=== PATIENT | female | born 1965 | race Caucasian/White ===

== ENCOUNTER 2021-01-17 20:19 | Inpatient (IN) | payer MEDICARE, SELFPAY ==
[~2021-01-17 20:19] MED LIST: Iopamidol-370 76% 500 ML 1 ML ONE
[2021-01-17 20:55] LABS: ALT (SGPT) 13 U/L (8-55); AST (SGOT) 19 U/L (5-34); Albumin 3.8 g/dL (3.5-5.0); Alkaline Phosphatase 87 U/L (40-110); Anion Gap 19 mmol/L (10-20); BUN (Urea Nitrogen) 41 mg/dL (9.8-20.1); Bilirubin, Total 0.7 mg/dL (0.2-1.2); Calc. Creatinine Clearance 0 mL/min (70-130); Calcium 7.9 mg/dL (7.8-10.44); Carbon Dioxide 18 mmol/L (22-29); Chloride 106 mmol/L (98-107); Globulin 2.5 g/dL (2.4-3.5); Glucose 176 mg/dL (70-105); Potassium 6.3 mmol/L (3.5-5.1); Protein, Total 6.3 g/dL (6.0-8.3); Sodium 137 mmol/L (136-145)
[2021-01-17 21:08] LABS: INR-International Normal Ratio 1.1; PTT 23.2 sec (22.9-36.1); Prothrombin Time 14.6 sec (12.0-14.7)
[2021-01-17 21:10] LABS: Hemoglobin 10.2 g/dL (12.0-16.0); Mean Corpuscular HGB CONC 32.3 g/dL (32.0-36.0); Mean Corpuscular Hemoglobin 31.5 pg (27.0-31.0); Mean Corpuscular Volume 97.6 fL (78.0-98.0); RBC Distribution Width 12.9 % (11.5-14.5); Red Blood Cell (RBC) Count 3.25 mill/uL (4.20-5.40)
[2021-01-17 21:14] LABS: Band 39 % (5-11); Lymphocytes 10 % (21-51); MDiff Complete? YES; Mean Platelet Volume 6.3 fL (7.4-10.4); Monocytes 3 % (0-10); Neutrophil 48 % (42-75); Platelet Count 353 thou/uL (130-400); White Blood Cell (WBC) Count 16.7 thou/uL (4.8-10.8)
[2021-01-17] MEDS ORDERED: Sodium Bicarb 50 MEQ/50 ML Abboject 8.4% SYRINGE ONE (21:25)
[2021-01-17] MEDS ORDERED: Pantoprazole 40 MG VIAL ONE (21:49)
[2021-01-17] MEDS ORDERED: Azithromycin 500 MG VIAL ONE (21:49)
[2021-01-17] MEDS ORDERED: cefTRIAXone\\ROCEPHIN 1 GM VIAL ONE (21:49)
[2021-01-17] MEDS ORDERED: Pantoprazole 80 MG, Admixture Fee 1 EACH in Sodium Chloride 0.9% 100 ML IVPB SCH (22:00)
[2021-01-17 22:04] LABS: Bacteria/HPF None Seen HPF (None Seen); Bilirubin Negative (Negative); Blood, Urine Negative (Negative); Clarity Clear (Clear); Glucose, Urine (Dipstick) Normal (Negative); Ketone, Urine Negative (Negative); Leukocyte Negative Leu/uL (Negative); Nitrite Negative (Negative); Protein, Urine (Dipstick) 50 mg/dL (Neg-Trace); Squamous Epithelial 0-3 HPF (0-3); Urobilinogen Normal mg/dL (Less than 2); pH, Urine 5.5 (5.0-9.0)
[2021-01-17 22:08] LABS: Acetaminophen Less than 6.0 mcg/mL (10.0-30.0); Alcohol Less than 10 mg/dL (Less than 10); Salicylate Less than 8.0 mg/dL (15.0-30.0)
[2021-01-17 22:12] LABS: SARS-CoV-2 NAA Rapid Test Not Detected (NotDetected)
[2021-01-17] MEDS ORDERED: Acetaminophen 650 MG Suppository PR PRN (23:04)
[2021-01-17] MEDS ORDERED: Pantoprazole 80 MG in Sodium Chloride 0.9% 100 ML IVPB SCH (23:06)
[2021-01-17] MEDS ORDERED: Norepinephrine 8 MG/0.9% NS 250 ML ONE (23:09)
[2021-01-17] MEDS ORDERED: Calcium Gluc 4.6 MEQ/10 ML (100 MG/ML) ONE (23:11)
[2021-01-17] MEDS ORDERED: Rocuronium Bromide 10 MG/ML (10ML VIAL) ONE (23:11)
[2021-01-17] MEDS ORDERED: Fentanyl CADD 100 ML IV SCH (23:45)
[2021-01-17] MEDS ORDERED: Sodium Chloride 0.9% 1,000 ML IV SCH (23:45)
[2021-01-18 00:14] LABS: Hemoglobin 11.8 g/dL (12.0-16.0); Mean Corpuscular Hemoglobin 31.4 pg (27.0-31.0); Mean Corpuscular Volume 97.2 fL (78.0-98.0)
[2021-01-18 00:16] LABS: ALT (SGPT) 21 U/L (8-55); AST (SGOT) 50 U/L (5-34); Albumin 3.2 g/dL (3.5-5.0); Alkaline Phosphatase 125 U/L (40-110); Anion Gap 15 mmol/L (10-20); BUN (Urea Nitrogen) 34 mg/dL (9.8-20.1); Bilirubin, Total 0.7 mg/dL (0.2-1.2); Calc. Creatinine Clearance 0 mL/min (70-130); Carbon Dioxide 16 mmol/L (22-29); Chloride 110 mmol/L (98-107); Globulin 2.4 g/dL (2.4-3.5); Glucose 170 mg/dL (70-105); Protein, Total 5.6 g/dL (6.0-8.3); Sodium 135 mmol/L (136-145)
[2021-01-18 00:22] LABS: Actual Bicarbonate (HCO3a) 13.6 mEq/L (22-28); Base Excess (BEa) -12.4 mEq/L (-2.0 to +3.0); CO2 Tension 31.6 mmHg (35.0-45.0); Calcium, Ionized (arterial) 1.05 mmol/L (1.12-1.30); Carboxyhemoglobin (COHb) 0.2 gm% (0.0-3.0); Hemoglobin (Hb) 12.6 g/dL (12.0-16.0); O2 Tension (PaO2), arterial 396.4 mmHg (80.0-100.0); Potassium - ABG Lab 5.74 mmol/L (3.70-5.30); pH, Arterial 7.25 (7.35-7.45)
[2021-01-18 00:23] LABS: Analyzer IN Cardio ER; Puncture Site LBA
[2021-01-18 00:47] LABS: Mean Corpuscular HGB CONC 32.3 g/dL (32.0-36.0); Mean Platelet Volume 6.4 fL (7.4-10.4); Platelet Count 249 thou/uL (130-400); RBC Distribution Width 14.2 % (11.5-14.5); Red Blood Cell (RBC) Count 3.77 mill/uL (4.20-5.40); White Blood Cell (WBC) Count 8.8 thou/uL (4.8-10.8)
[2021-01-18 00:51] LABS: Band 34 % (5-11); Lymphocytes 13 % (21-51); Monocytes 1 % (0-10); Neutrophil 52 % (42-75)
[2021-01-18 01:05] LABS: MDiff Complete? YES
[2021-01-18] MEDS ORDERED: Fentanyl BOLUS 250 ML IVPB PRN (01:15)
[2021-01-18] MEDS ORDERED: Propofol BOLUS 1,000 MG/100 ML VIAL IV PRN (01:15)
[2021-01-18] MEDS ORDERED: Morphine 2 MG/ML VIAL SLOW IVP PRN (01:15)
[2021-01-18] MEDS ORDERED: Vancomycin 1 GM in Premix Bag 1 BAG IVPB SCH (01:15)
[2021-01-18] MEDS ORDERED: Fentanyl CADD 100 ML IV SCH (01:15)
[2021-01-18] MEDS ORDERED: Propofol 1,000 MG/100 ML VIAL IV PRN (01:15)
[2021-01-18 01:20] LABS: Amphetamine Detected (NotDetected); Barbiturates Screen Not Detected (NotDetected); Benzodiazepine Screen Detected (NotDetected); Cocaine Metabolite Screen Not Detected (NotDetected); Medtox Control Line Valid? VALID (VALID); Medtox Reader # READER 4; Methadone Not Detected (NotDetected); Methamphetamine Not Detected (NotDetected); Opiate Screen Detected (NotDetected); Oxycodone Screen Not Detected (NotDetected); Phencyclidine (PCP) Not Detected (NotDetected); THC/Cannabinoid Screen Detected (NotDetected); Tricyclic Screen Not Detected (NotDetected)
[2021-01-18] MEDS ORDERED: Dextrose 50% Abboject 50 ML SYRINGE SLOW IVP PRN (01:38)
[2021-01-18] MEDS ORDERED: Insulin Regular 300 UNITS/3 ML VIAL IVP SCH (01:45)
[2021-01-18] MEDS ORDERED: Sodium Bicarbonate 150 MEQ in Dextrose 5% in Water 1,000 ML IV SCH (01:45)
[2021-01-18] MEDS: MEROPENEM 1 GM/50 ML 1 GM in Premix Bag 1 BAG IVPB SCH ×3 (01:49→16:54)
[2021-01-18] MEDS: Thiamine HCl 200 MG/2 ML VIAL SLOW IVP SCH (01:51)
[2021-01-18] MEDS: Lorazepam 2 MG/ML VIAL SLOW IVP PRN ×2 (01:52→20:06)
[2021-01-18] MEDS ORDERED: Vancomycin HCl 500 MG in Sodium Chloride 0.9% 100 ML IVPB SCH (02:00)
[2021-01-18 04:44] LABS: Hemoglobin A1c 5.2 % (4.0-6.0)
[2021-01-18 04:51] LABS: Hemoglobin 11.5 g/dL (12.0-16.0); Mean Corpuscular HGB CONC 31.7 g/dL (32.0-36.0); Mean Corpuscular Hemoglobin 30.6 pg (27.0-31.0); Mean Corpuscular Volume 96.4 fL (78.0-98.0); Mean Platelet Volume 6.5 fL (7.4-10.4); Platelet Count 267 thou/uL (130-400); RBC Distribution Width 14.4 % (11.5-14.5); Red Blood Cell (RBC) Count 3.77 mill/uL (4.20-5.40); White Blood Cell (WBC) Count 4.3 thou/uL (4.8-10.8)
[2021-01-18 04:59] LABS: ALT (SGPT) 33 U/L (8-55); AST (SGOT) 77 U/L (5-34); Alkaline Phosphatase 142 U/L (40-110); Anion Gap 11 mmol/L (10-20); BUN (Urea Nitrogen) 31 mg/dL (9.8-20.1); Bilirubin, Total 0.5 mg/dL (0.2-1.2); Calc. Creatinine Clearance 29 mL/min (70-130); Calcium 7.1 mg/dL (7.8-10.44); Carbon Dioxide 17 mmol/L (22-29); Chloride 115 mmol/L (98-107); Globulin 2.3 g/dL (2.4-3.5); Glucose 131 mg/dL (70-105); Potassium 4.4 mmol/L (3.5-5.1); Protein, Total 5.3 g/dL (6.0-8.3); Sodium 139 mmol/L (136-145)
[2021-01-18 05:15] LABS: Actual Bicarbonate (HCO3a) 18.9 mEq/L (22-28); Base Excess (BEa) -7.8 mEq/L (-2.0 to +3.0); CO2 Tension 42.8 mmHg (35.0-45.0); Calcium, Ionized (arterial) 1.09 mmol/L (1.12-1.30); Carboxyhemoglobin (COHb) 0.6 gm% (0.0-3.0); Hemoglobin (Hb) 12.6 g/dL (12.0-16.0); O2 Tension (PaO2), arterial 91.3 mmHg (80.0-100.0); Potassium - ABG Lab 4.52 mmol/L (3.70-5.30); pH, Arterial 7.26 (7.35-7.45)
[2021-01-18 05:16] LABS: Puncture Site LBA
[2021-01-18] MEDS: Sodium Bicarbonate 150 MEQ in Dextrose 5% in Water 1,000 ML IV SCH ×2 (06:13→15:57)
[2021-01-18 06:26] LABS: Band 36 % (5-11); Eosinophils 3 % (0-10); Lymphocytes 29 % (21-51); MDiff Complete? YES; Metamyelocyte 5 % (0-0); Monocytes 2 % (0-10); Neutrophil 25 % (42-75)
[2021-01-18 06:56] LABS: Hemoglobin 11.8 g/dL (12.0-16.0)
[2021-01-18] MEDS ORDERED: Prevnar 13-Val Conj/PF 0.5 ML SYRINGE IM ONE (09:00)
[2021-01-18] MEDS ORDERED: Albumin 25% 25 GM/100 ML BOT IVPB SCH (09:15)
[2021-01-18] MEDS: Vancomycin HCl 25 MG/ML Oral PER TUBE SCH ×3 (10:04→22:25)
[2021-01-18 11:16] LABS: Creatinine, Urine 112.61 mg/dL (47-110)
[2021-01-18 11:24] LABS: Hemoglobin 9.8 g/dL (12.0-16.0)
[2021-01-18 18:03] LABS: Hemoglobin 10.2 g/dL (12.0-16.0)
[2021-01-18] MEDS: Enalaprilat Dihydrate 1.25 MG/ML VIAL SLOW IVP SCH (19:00)
[2021-01-18] MEDS ORDERED: Acetaminophen 650 MG/20.3 ML UDCUP PER TUBE PRN (20:03)
[2021-01-18] MEDS ORDERED: Fentanyl CADD 100 ML ONE (23:04)
[2021-01-19] LABS: Hemoglobin 9.3 g/dL (12.0-16.0)
[2021-01-19] MEDS: MEROPENEM 1 GM/50 ML 1 GM in Premix Bag 1 BAG IVPB SCH ×3 (01:44→17:21)
[2021-01-19] MEDS ORDERED: Vancomycin HCl 500 MG in Sodium Chloride 0.9% 100 ML IVPB SCH (02:00)
[2021-01-19] MEDS: Thiamine HCl 200 MG/2 ML VIAL SLOW IVP SCH (02:48)
[2021-01-19] MEDS: Sodium Bicarbonate 150 MEQ in Dextrose 5% in Water 1,000 ML IV SCH (03:50)
[2021-01-19 04:35] LABS: Band 39 % (5-11); Eosinophils 9 % (0-10); Hemoglobin 9.6 g/dL (12.0-16.0); Lymphocytes 5 % (21-51); MDiff Complete? YES; Mean Corpuscular HGB CONC 33.7 g/dL (32.0-36.0); Mean Corpuscular Hemoglobin 31.8 pg (27.0-31.0); Mean Corpuscular Volume 94.3 fL (78.0-98.0); Mean Platelet Volume 6.5 fL (7.4-10.4); Monocytes 6 % (0-10); Neutrophil 38 % (42-75); Platelet Count 198 thou/uL (130-400); RBC Distribution Width 14.3 % (11.5-14.5); Reactive Lymphocytes 3 % (0-10); Red Blood Cell (RBC) Count 3.03 mill/uL (4.20-5.40); Vacuoles SLIGHT; White Blood Cell (WBC) Count 6.5 thou/uL (4.8-10.8)
[2021-01-19 04:36] LABS: ALT (SGPT) 18 U/L (8-55); AST (SGOT) 24 U/L (5-34); Albumin 2.9 g/dL (3.5-5.0); Alkaline Phosphatase 94 U/L (40-110); Anion Gap 9 mmol/L (10-20); BUN (Urea Nitrogen) 18 mg/dL (9.8-20.1); Bilirubin, Total 0.5 mg/dL (0.2-1.2); Calc. Creatinine Clearance 71 mL/min (70-130); Calcium 7.5 mg/dL (7.8-10.44); Carbon Dioxide 28 mmol/L (22-29); Chloride 106 mmol/L (98-107); Glucose 111 mg/dL (70-105); Potassium 3.6 mmol/L (3.5-5.1); Protein, Total 4.9 g/dL (6.0-8.3); Sodium 139 mmol/L (136-145)
[2021-01-19] MEDS ORDERED: Albumin 25% 0 ML ONE (08:42)
[2021-01-19] MEDS ORDERED: Pantoprazole 40 MG GRANULES PACKET PER TUBE SCH (09:00)
[2021-01-19] MEDS: methylPREDNISolone Sod Succ/PF 125 MG/2 ML VIAL IVP SCH ×3 (09:29→21:24)
[2021-01-19] MEDS: Vancomycin HCl 25 MG/ML Oral PO SCH ×3 (09:35→21:26)
[2021-01-19] MEDS ORDERED: Ergocalciferol 1.25 MG(50,000 UNITS) CAP PO SCH (10:30)
[2021-01-20] MEDS: MEROPENEM 1 GM/50 ML 1 GM in Premix Bag 1 BAG IVPB SCH ×3 (00:35→16:12)
[2021-01-20 01:26] LABS: Vancomycin, Trough 3.9 ug/mL
[2021-01-20] MEDS: Thiamine HCl 200 MG/2 ML VIAL SLOW IVP SCH (01:57)
[2021-01-20] MEDS ORDERED: Vancomycin 1 GM in Premix Bag 1 BAG IVPB SCH (02:00)
[2021-01-20] MEDS: Vancomycin HCl 25 MG/ML Oral PO SCH ×4 (02:53→21:04)
[2021-01-20] MEDS: methylPREDNISolone Sod Succ/PF 125 MG/2 ML VIAL IVP SCH ×4 (03:24→21:03)
[2021-01-20 04:19] LABS: #Lymphocytes 0.6 thou/uL (1.20-3.40); #Monocytes 0.2 thou/uL (0.11-0.59); #Neutrophils 4.8 thou/uL (1.40-6.50); %Lymphocytes 10.1 % (21.0-51.0); Hemoglobin 10.3 g/dL (12.0-16.0); Mean Corpuscular HGB CONC 33.8 g/dL (32.0-36.0); Mean Corpuscular Hemoglobin 31.7 pg (27.0-31.0); Mean Corpuscular Volume 93.7 fL (78.0-98.0); Mean Platelet Volume 6.6 fL (7.4-10.4); Platelet Count 225 thou/uL (130-400); RBC Distribution Width 13.9 % (11.5-14.5); Red Blood Cell (RBC) Count 3.25 mill/uL (4.20-5.40); White Blood Cell (WBC) Count 5.5 thou/uL (4.8-10.8)
[2021-01-20 04:42] LABS: ALT (SGPT) 17 U/L (8-55); AST (SGOT) 20 U/L (5-34); Albumin 3.2 g/dL (3.5-5.0); Alkaline Phosphatase 97 U/L (40-110); Anion Gap 11 mmol/L (10-20); BUN (Urea Nitrogen) 16 mg/dL (9.8-20.1); Bilirubin, Total 0.5 mg/dL (0.2-1.2); Calc. Creatinine Clearance 88 mL/min (70-130); Calcium 8.4 mg/dL (7.8-10.44); Carbon Dioxide 25 mmol/L (22-29); Chloride 107 mmol/L (98-107); Globulin 2.3 g/dL (2.4-3.5); Glucose 160 mg/dL (70-105); Potassium 3.2 mmol/L (3.5-5.1); Protein, Total 5.5 g/dL (6.0-8.3); Sodium 140 mmol/L (136-145)
[2021-01-20] MEDS: Ondansetron PF 4 MG/2 ML Vial IVP PRN (05:44)
[2021-01-20] MEDS ORDERED: Potassium Chloride 20 MEQ TAB PO SCH ×2 (05:45→18:15)
[2021-01-20 06:55] LABS: Phosphorus 1.5 mg/dL (2.3-4.7)
[2021-01-20] MEDS ORDERED: Potassium Phosphate 30 MMOL in Sodium Chloride 0.9% 250 ML 250 ML IVPB SCH (08:15)
[2021-01-20] MEDS: K-Phos Neutral 250 MG TAB PO SCH ×2 (08:38→16:13)
[2021-01-20] MEDS: Lorazepam 1 MG TAB PO PRN ×2 (11:10→17:20)
[2021-01-20] MEDS ORDERED: Enalaprilat Dihydrate 1.25 MG/ML VIAL SLOW IVP SCH (13:45)
[2021-01-20] MEDS: Gabapentin 300 MG CAP PO SCH ×2 (14:40→21:03)
[2021-01-20] MEDS: levETIRAcetam 500 MG TAB PO SCH ×2 (14:40→21:04)
[2021-01-20] MEDS: Enalaprilat Dihydrate 1.25 MG/ML VIAL SLOW IVP SCH (17:19)
[2021-01-20] MEDS ORDERED: hydrALAZINE 20 MG/ML VIAL SLOW IVP PRN (18:07)
[2021-01-20] MEDS ORDERED: cloNIDine 0.1 MG TAB PO SCH ×2 (18:15→21:00)
[2021-01-20] MEDS: Morphine ER 15 MG TAB PO SCH (21:02)
[2021-01-20] MEDS: Cyclobenzaprine 10 MG TAB PO SCH (21:03)
[2021-01-21] MEDS: Enalaprilat Dihydrate 1.25 MG/ML VIAL SLOW IVP SCH ×4 (00:30→17:21)
[2021-01-21] MEDS: MEROPENEM 1 GM/50 ML 1 GM in Premix Bag 1 BAG IVPB SCH ×2 (00:30→09:35)
[2021-01-21] MEDS: Thiamine HCl 200 MG/2 ML VIAL SLOW IVP SCH (01:53)
[2021-01-21] MEDS ORDERED: Vancomycin HCl 750 MG in Sodium Chloride 0.9% 250 ML 250 ML IVPB SCH (02:00)
[2021-01-21] MEDS: methylPREDNISolone Sod Succ/PF 125 MG/2 ML VIAL IVP SCH (03:13)
[2021-01-21] MEDS: Vancomycin HCl 25 MG/ML Oral PO SCH ×4 (03:13→20:37)
[2021-01-21 03:26] LABS: #Lymphocytes 0.9 thou/uL (1.20-3.40); #Monocytes 0.4 thou/uL (0.11-0.59); %Basophils 0.2 % (0.0-1.0); %Lymphocytes 10.4 % (21.0-51.0); %Monocytes 5.3 % (0.0-10.0); %Neutrophils 84.1 % (42.0-75.0); Hemoglobin 11.2 g/dL (12.0-16.0); Mean Corpuscular Hemoglobin 31.7 pg (27.0-31.0); Mean Corpuscular Volume 93.3 fL (78.0-98.0); Mean Platelet Volume 6.6 fL (7.4-10.4); Platelet Count 235 thou/uL (130-400); RBC Distribution Width 13.9 % (11.5-14.5); Red Blood Cell (RBC) Count 3.53 mill/uL (4.20-5.40); White Blood Cell (WBC) Count 8.3 thou/uL (4.8-10.8)
[2021-01-21 03:46] LABS: Anion Gap 13 mmol/L (10-20); BUN (Urea Nitrogen) 19 mg/dL (9.8-20.1); Calc. Creatinine Clearance 81 mL/min (70-130); Calcium 8.3 mg/dL (7.8-10.44); Carbon Dioxide 21 mmol/L (22-29); Chloride 111 mmol/L (98-107); Glucose 139 mg/dL (70-105); Potassium 3.7 mmol/L (3.5-5.1); Sodium 141 mmol/L (136-145)
[2021-01-21 04:22] LABS: Phosphorus 2.1 mg/dL (2.3-4.7)
[2021-01-21] MEDS: cloNIDine 0.1 MG TAB PO SCH ×3 (08:30→20:31)
[2021-01-21] MEDS: K-Phos Neutral 250 MG TAB PO SCH ×2 (08:31→16:17)
[2021-01-21] MEDS: Gabapentin 300 MG CAP PO SCH ×3 (08:31→20:33)
[2021-01-21] MEDS: levETIRAcetam 500 MG TAB PO SCH ×3 (08:31→20:34)
[2021-01-21] MEDS: Morphine ER 15 MG TAB PO SCH ×2 (08:32→20:37)
[2021-01-21] MEDS: Lisinopril 20 MG TAB PO SCH (08:32)
[2021-01-21] MEDS ORDERED: Amlodipine 5 MG TAB PO SCH (11:45)
[2021-01-21] MEDS: Ondansetron PF 4 MG/2 ML Vial IVP PRN ×2 (13:16→20:35)
[2021-01-21 14:46] VITALS: BMI 24.3
[2021-01-21] MEDS: HYDROcodone/Acetaminophen 5/325 mg Tablet PO PRN (16:16)
[2021-01-21] MEDS: Cyclobenzaprine 10 MG TAB PO SCH (20:32)
[2021-01-22] MEDS: Lorazepam 1 MG TAB PO PRN (00:06)
[2021-01-22] MEDS: HYDROcodone/Acetaminophen 5/325 mg Tablet PO PRN (00:08)
[2021-01-22] MEDS: Enalaprilat Dihydrate 1.25 MG/ML VIAL SLOW IVP SCH ×3 (01:19→12:50)
[2021-01-22] MEDS: Vancomycin HCl 25 MG/ML Oral PO SCH ×3 (02:45→15:25)
[2021-01-22] MEDS: Thiamine HCl 200 MG/2 ML VIAL SLOW IVP SCH (02:45)
[2021-01-22 06:46] LABS: Hemoglobin 10.8 g/dL (12.0-16.0); Mean Corpuscular HGB CONC 33.2 g/dL (32.0-36.0); Mean Corpuscular Hemoglobin 30.9 pg (27.0-31.0); Mean Platelet Volume 6.7 fL (7.4-10.4); Platelet Count 270 thou/uL (130-400); RBC Distribution Width 13.8 % (11.5-14.5); White Blood Cell (WBC) Count 8.2 thou/uL (4.8-10.8)
[2021-01-22 06:49] LABS: Anion Gap 12 mmol/L (10-20); BUN (Urea Nitrogen) 23 mg/dL (9.8-20.1); Calc. Creatinine Clearance 77 mL/min (70-130); Calcium 8.3 mg/dL (7.8-10.44); Carbon Dioxide 24 mmol/L (22-29); Chloride 104 mmol/L (98-107); Glucose 96 mg/dL (70-105); Phosphorus 2.8 mg/dL (2.3-4.7); Potassium 4.1 mmol/L (3.5-5.1); Sodium 136 mmol/L (136-145)
[2021-01-22 07:31] LABS: Band 4 % (5-11); Lymphocytes 13 % (21-51); MDiff Complete? YES; Monocytes 13 % (0-10); Neutrophil 70 % (42-75); Platelet Morphology Comment Appears Adequate; Polychromasia SLIGHT = 2-3 cells (100X) (0-2/hpf)
[2021-01-22] MEDS ORDERED: Amlodipine 5 MG TAB PO SCH (09:00)
[2021-01-22] MEDS: Gabapentin 300 MG CAP PO SCH ×2 (09:10→15:24)
[2021-01-22] MEDS: Morphine ER 15 MG TAB PO SCH (09:11)
[2021-01-22] MEDS: levETIRAcetam 500 MG TAB PO SCH ×2 (09:11→15:24)
[2021-01-22] MEDS: cloNIDine 0.1 MG TAB PO SCH ×2 (10:36→15:24)
[2021-01-22] MEDS: Lisinopril 20 MG TAB PO SCH (10:47)
[2021-01-22] MEDS: Ondansetron PF 4 MG/2 ML Vial IVP PRN (15:25)
[2021-01-22 19:49] VITALS: BP 143/82; TEMP 98.4
[2021-01-26] MEDS ORDERED: Ergocalciferol 1.25 MG(50,000 UNITS) CAP PO SCH (09:00)
== END 2021-01-22 18:55 | disposition home or self-care (01) | DRG 871 ==
LOC: EDBD 20:19 → ERS 20:19 → CCU 22:56 → T4-A 01-21 23:53
PROVIDERS: ADMIT Internal Medicine; ATTEND Internal Medicine
PROC: 5A1945Z Respiratory Ventilation, 24-96 Consecutive Hours (ICD-10-PCS; principal; 2021-01-17)
PROC: 0BH17EZ Insertion of Endotracheal Airway into Trachea, Via Natural or Artificial Opening (ICD-10-PCS; 2021-01-17)
PROC: 3E043XZ Introduction of Vasopressor into Central Vein, Percutaneous Approach (ICD-10-PCS; 2021-01-17)
PROC: 02HV33Z Insertion of Infusion Device into Superior Vena Cava, Percutaneous Approach (ICD-10-PCS; 2021-01-17)
PROC: B548ZZA Ultrasonography of Superior Vena Cava, Guidance (ICD-10-PCS; 2021-01-17)
PROC: 0D9670Z Drainage of Stomach with Drainage Device, Via Natural or Artificial Opening (ICD-10-PCS; 2021-01-17)
PROC: 30233N1 Transfusion of Nonautologous Red Blood Cells into Peripheral Vein, Percutaneous Approach (ICD-10-PCS; 2021-01-17)
PROC: 8E0ZXY6 Isolation (ICD-10-PCS; 2021-01-18)
DX: A41.9 Sepsis, unspecified organism (principal); R65.21 Severe sepsis with septic shock; J96.02 Acute respiratory failure with hypercapnia; J96.01 Acute respiratory failure with hypoxia; R57.8 Other shock; J69.0 Pneumonitis due to inhalation of food and vomit; G92 Toxic encephalopathy; A04.72 Enterocolitis due to Clostridium difficile, not specified as recurrent; N17.9 Acute kidney failure, unspecified; E87.2 Acidosis; Z20.822 Contact with and (suspected) exposure to COVID-19; F10.10 Alcohol abuse, uncomplicated; I10 Essential (primary) hypertension; G40.909 Epilepsy, unspecified, not intractable, without status epilepticus; G89.29 Other chronic pain; F41.9 Anxiety disorder, unspecified; D64.9 Anemia, unspecified; R94.5 Abnormal results of liver function studies; E87.5 Hyperkalemia; E86.9 Volume depletion, unspecified; J45.909 Unspecified asthma, uncomplicated; T39.395A Adverse effect of other nonsteroidal anti-inflammatory drugs [NSAID], initial encounter; E83.51 Hypocalcemia; I16.0 Hypertensive urgency; M81.0 Age-related osteoporosis without current pathological fracture; T42.6X5A Adverse effect of other antiepileptic and sedative-hypnotic drugs, initial encounter; M06.9 Rheumatoid arthritis, unspecified; T42.4X5A Adverse effect of benzodiazepines, initial encounter; Z88.6 Allergy status to analgesic agent; Z98.890 Other specified postprocedural states; Z79.899 Other long term (current) drug therapy; Z87.891 Personal history of nicotine dependence; Z79.891 Long term (current) use of opiate analgesic; Z85.820 Personal history of malignant melanoma of skin; Z88.8 Allergy status to other drugs, medicaments and biological substances; Z82.0 Family history of epilepsy and other diseases of the nervous system; Z82.49 Family history of ischemic heart disease and other diseases of the circulatory system
CPT/HCPCS: 31500; 36415; 36416; 36430; 36556; 36600; 51702; 70450; 71045; 71275; 74018; 74177; 76705; 80048; 80053; 80177; 80202; 80306; 80307; 81003; 81015; 82140; 82274; 82306; 82570; 82805; 83036; 83605; 83735; 83880; 84100; 84156; 84300; 84484; 84540; 85025; 85610; 85730; 86850; 86900; 86901; 87040; 87045; 87046; 87070; 87086; 87205; 87324; 87427; 87449; 87493; 93005; 94002; 94003; 94640; 96365; 96366; 96367; 96368; 96375; 96376; C9113; J0360; J0456; J0696; J1815; J1953; J2001; J2060; J2185; J2270; J2405; J2704; J2930; J3010; J3370; J3411; J3490; J7050; J7070; J7620; P9016; P9047; Q9967; U0002; U0005

== ENCOUNTER 2021-04-07 11:55 | Inpatient (IN) | payer MEDICARE ==
[2021-04-07 12:33] LABS: Hemoglobin 13.5 g/dL (12.0-16.0); Mean Corpuscular HGB CONC 33.8 g/dL (32.0-36.0); Mean Corpuscular Hemoglobin 31.7 pg (27.0-31.0); Mean Corpuscular Volume 93.8 fL (78.0-98.0); RBC Distribution Width 13.1 % (11.5-14.5); Red Blood Cell (RBC) Count 4.25 mill/uL (4.20-5.40)
[2021-04-07] MEDS ORDERED: Morphine 4 MG/ML VIAL ONE (12:35)
[2021-04-07 12:47] LABS: White Blood Cell (WBC) Count 23.4 thou/uL (4.8-10.8)
[2021-04-07 12:52] LABS: ALT (SGPT) 181 U/L (8-55); AST (SGOT) 106 U/L (5-34); Alkaline Phosphatase 623 U/L (40-110); Anion Gap 13 mmol/L (10-20); BUN (Urea Nitrogen) 18 mg/dL (9.8-20.1); Bilirubin, Total 1.6 mg/dL (0.2-1.2); Calc. Creatinine Clearance 0 mL/min (70-130); Calcium 9.6 mg/dL (7.8-10.44); Carbon Dioxide 27 mmol/L (22-29); Chloride 97 mmol/L (98-107); Globulin 3.5 g/dL (2.4-3.5); Glucose 128 mg/dL (70-105); Potassium 5.4 mmol/L (3.5-5.1); Protein, Total 7.5 g/dL (6.0-8.3); Sodium 132 mmol/L (136-145)
[2021-04-07 12:54] LABS: BHCG - Serum Negative (NEGATIVE); Pregs Control Background? CLEAR/WHITE (CLR/WHITE); Pregs Control Bar Appear? YES (CONTROL BAR)
[2021-04-07 12:57] LABS: Band 5 % (5-11); Lymphocytes 5 % (21-51); MDiff Complete? YES; Mean Platelet Volume 6.2 fL (7.4-10.4); Monocytes 8 % (0-10); Neutrophil 81 % (42-75); Platelet Count 453 thou/uL (130-400); Platelet Morphology Comment Appears Increased; RBC Morphology Normal; Reactive Lymphocytes 1 % (0-10)
[2021-04-07] MEDS ORDERED: Piperacillin/Tazobactam 4.5 GM VIAL ONE (13:08)
[2021-04-07] MEDS ORDERED: Iopamidol-370 76% 500 ML 1 ML ONE (13:31)
[2021-04-07] MEDS ORDERED: HYDROmorphone 0.5 MG/0.5 ML SYRINGE ONE (15:46)
[2021-04-07 17:30] LABS: Bilirubin Negative (Negative); Blood, Urine Moderate (Negative); Glucose, Urine (Dipstick) Negative (Negative); Ketone, Urine Negative (Negative); Leukocyte Negative (Negative); Nitrite Negative (Negative); Protein, Urine (Dipstick) Negative (Neg-Trace); pH, Urine 7.5 (5.0-9.0)
[2021-04-07 17:36] LABS: Clarity Clear (Clear); WBC/HPF None Seen HPF (0-3)
[2021-04-07 17:37] LABS: Bacteria/HPF Rare-Few HPF (None Seen); Squamous Epithelial 0-3 HPF (0-3)
[2021-04-07] MEDS ORDERED: Acetaminophen 325 MG TAB PO PRN (22:52)
[2021-04-07] MEDS ORDERED: Ondansetron ODT 4 MG TAB PO PRN (22:52)
[2021-04-07] MEDS ORDERED: Acetaminophen 650 MG Suppository PR PRN (22:52)
[2021-04-07] MEDS ORDERED: Ondansetron PF 4 MG/2 ML Vial IVP PRN (22:52)
[2021-04-07] MEDS ORDERED: Morphine 4 MG/ML VIAL SLOW IVP PRN ×2 (22:55→22:58)
[2021-04-07] MEDS ORDERED: Morphine 2 MG/ML VIAL SLOW IVP PRN (22:58)
[2021-04-07] MEDS ORDERED: Piperacillin/Tazobactam 4.5 GM in Sodium Chloride 0.9% 100 ML IVPB SCH (23:00)
[2021-04-07] MEDS ORDERED: Sodium Chloride 0.9% 1,000 ML IV SCH (23:00)
[2021-04-07] MEDS ORDERED: Sodium Chloride 0.9% 500 ML IV SCH (23:45)
[2021-04-07] MEDS ORDERED: levETIRAcetam in NS 500 MG in Premix Bag 1 BAG IVPB SCH (23:45)
[2021-04-07] MEDS: Sodium Chloride 0.9% 1,000 ML IV SCH (23:45)
[2021-04-08 00:25] LABS: Anion Gap 14 mmol/L (10-20); BUN (Urea Nitrogen) 14 mg/dL (9.8-20.1); Calc. Creatinine Clearance 0 mL/min (70-130); Calcium 9.1 mg/dL (7.8-10.44); Carbon Dioxide 21 mmol/L (22-29); Chloride 102 mmol/L (98-107); Glucose 89 mg/dL (70-105); Potassium 4.4 mmol/L (3.5-5.1); Sodium 133 mmol/L (136-145)
[2021-04-08 00:30] LABS: Troponin I Less than 0.010 ng/mL (< 0.028)
[2021-04-08] MEDS ORDERED: Morphine 4 MG/ML VIAL ONE ×2 (00:40→06:42)
[2021-04-08] MEDS ORDERED: levETIRAcetam 500 MG/100 ML PREMIX BAG ONE ×2 (00:41→09:35)
[2021-04-08] MEDS: Piperacillin/Tazobactam 3.375 GM in Sodium Chloride 0.9% 100 ML IVPB SCH ×2 (01:19→07:45)
[2021-04-08] MEDS ORDERED: Piperacillin/Tazobactam 3.375 GM VIAL ONE (01:28)
[2021-04-08 06:35] VITALS: BP 150/95; TEMP 98.5
[2021-04-08] MEDS ORDERED: Ondansetron PF 4 MG/2 ML Vial ONE ×2 (06:47→11:14)
[2021-04-08 07:03] LABS: Hemoglobin 11.5 g/dL (12.0-16.0); Mean Corpuscular HGB CONC 33.6 g/dL (32.0-36.0); Mean Corpuscular Hemoglobin 31.4 pg (27.0-31.0); Mean Corpuscular Volume 93.4 fL (78.0-98.0); Mean Platelet Volume 6.4 fL (7.4-10.4); Platelet Count 372 thou/uL (130-400); RBC Distribution Width 13.2 % (11.5-14.5); Red Blood Cell (RBC) Count 3.67 mill/uL (4.20-5.40)
[2021-04-08 07:16] LABS: Anion Gap 10 mmol/L (10-20); BUN (Urea Nitrogen) 14 mg/dL (9.8-20.1); Calc. Creatinine Clearance 0 mL/min (70-130); Calcium 8.9 mg/dL (7.8-10.44); Carbon Dioxide 23 mmol/L (22-29); Chloride 105 mmol/L (98-107); Glucose 108 mg/dL (70-105); Potassium 4.2 mmol/L (3.5-5.1); Sodium 134 mmol/L (136-145)
[2021-04-08 07:27] LABS: Band 1 % (5-11); Lymphocytes 7 % (21-51); MDiff Complete? YES; Monocytes 10 % (0-10); Neutrophil 82 % (42-75); Platelet Morphology Comment Appears Adequate; RBC Morphology Normal
[2021-04-08 08:55] LABS: SARS-CoV-2 NAA Rapid Test Not Detected (NotDetected)
[2021-04-08] MEDS ORDERED: levETIRAcetam in NS 500 MG in Premix Bag 1 BAG IVPB SCH (09:00)
[2021-04-08] MEDS ORDERED: levETIRAcetam 500 MG TAB PO SCH (09:00)
[2021-04-08] MEDS: Sodium Chloride 0.9% 1,000 ML IV SCH (09:17)
[2021-04-08 09:46] LABS: ALT (SGPT) 98 U/L (8-55); AST (SGOT) 37 U/L (5-34); Albumin 3.4 g/dL (3.5-5.0); Alkaline Phosphatase 414 U/L (40-110); Bilirubin, Direct 0.5 mg/dL (0.1-0.3); Bilirubin, Total 0.9 mg/dL (0.2-1.2); Protein, Total 6.5 g/dL (6.0-8.3)
[2021-04-08] MEDS ORDERED: Bupivacaine 0.25% HCL 30 ML VIAL ONE (10:52)
[2021-04-08] MEDS ORDERED: Lidocaine 1% w/Epinephrine 1:100K 30 ML VIAL ONE (10:53)
[2021-04-08] MEDS ORDERED: Fentanyl 100 MCG/2 ML VIAL ONE ×4 (10:57→14:21)
[2021-04-08] MEDS ORDERED: HYDROmorphone 0.5 MG/0.5 ML SYRINGE ONE ×2 (10:57→14:20)
[2021-04-08] MEDS ORDERED: Famotidine/PF 20 mg/2ml Vial ONE (11:06)
[2021-04-08] MEDS ORDERED: Esmolol 100 MG/10 ML VIAL ONE (11:14)
[2021-04-08] MEDS ORDERED: PROPOFOL 200 MG/20 ML VIAL ONE (11:14)
[2021-04-08] MEDS ORDERED: Metoclopramide HCl 10 MG/2 ML VIAL ONE (11:14)
[2021-04-08] MEDS ORDERED: Lidocaine 1% PF 5 ML VIAL ONE (11:14)
[2021-04-08] MEDS ORDERED: Glycopyrrolate 0.2 MG/ML 5 ML SYRINGE ONE (11:14)
[2021-04-08] MEDS ORDERED: Dexamethasone 20 MG/5 ML VIAL ONE (11:14)
[2021-04-08] MEDS ORDERED: Rocuronium Bromide 10 MG/ML (10ML VIAL) ONE (11:14)
[2021-04-08] MEDS ORDERED: PHENYLEPHRINE-NS 100 MCG/ML 10 ML SYRINGE ONE (11:14)
[2021-04-08] MEDS ORDERED: Succinylcholine 200 MG/10 ml SYRINGE FS ONE (11:14)
[2021-04-08] MEDS ORDERED: Iothalamate Meglumine 60% 50 ML VIAL FS ONE (11:33)
[2021-04-08] MEDS ORDERED: Meperidine HCl/PF 25 MG/ML VIAL SLOW IVP PRN (12:41)
[2021-04-08] MEDS ORDERED: Promethazine HCl 25 MG/ML VIAL IVPB PRN (12:41)
[2021-04-08] MEDS ORDERED: Promethazine HCl 25 MG/ML VIAL IM PRN (12:41)
[2021-04-08] MEDS ORDERED: Ondansetron HCl/PF 4 MG/2 ML Vial IVP PRN (12:41)
[2021-04-08] MEDS ORDERED: HYDROmorphone 2 MG/ML VIAL SLOW IVP PRN (12:41)
[2021-04-08] MEDS ORDERED: hydrALAZINE 20 MG/ML VIAL SLOW IVP PRN (12:46)
[2021-04-08] MEDS ORDERED: HYDROmorphone 2 MG/ML VIAL ONE (14:01)
[2021-04-08] MEDS ORDERED: Labetalol HCl 100 MG/20 ML VIAL ONE ×2 (14:02→16:46)
[2021-04-08] MEDS ORDERED: hydrALAZINE 20 MG/ML VIAL ONE (17:10)
[2021-04-08] MEDS ORDERED: HYDROcodone/Acetaminophen 5/325 mg Tablet ONE ×2 (17:36)
== END 2021-04-08 18:25 | disposition home or self-care (01) | DRG 417 ==
LOC: ERS 11:55 → ERHOLD 18:42
PROVIDERS: ADMIT Family Medicine; ATTEND Internal Medicine
PROC: 0FT44ZZ Resection of Gallbladder, Percutaneous Endoscopic Approach (ICD-10-PCS; principal; 2021-04-07)
PROC: BF131ZZ Fluoroscopy of Gallbladder and Bile Ducts using Low Osmolar Contrast (ICD-10-PCS; 2021-04-07)
DX: K81.0 Acute cholecystitis (principal); J18.9 Pneumonia, unspecified organism; Z20.822 Contact with and (suspected) exposure to COVID-19; Z96.612 Presence of left artificial shoulder joint; E87.5 Hyperkalemia; R74.01 Elevation of levels of liver transaminase levels; G89.29 Other chronic pain; F41.9 Anxiety disorder, unspecified; F32.9 Major depressive disorder, single episode, unspecified; I10 Essential (primary) hypertension; G40.909 Epilepsy, unspecified, not intractable, without status epilepticus; Z79.899 Other long term (current) drug therapy; Z87.891 Personal history of nicotine dependence; Z87.11 Personal history of peptic ulcer disease; Z85.820 Personal history of malignant melanoma of skin; Z88.5 Allergy status to narcotic agent; Z88.8 Allergy status to other drugs, medicaments and biological substances; Z86.73 Personal history of transient ischemic attack (TIA), and cerebral infarction without residual deficits
CPT/HCPCS: 36415; 47532; 71045; 74022; 74177; 76705; 80048; 80053; 80076; 81003; 81015; 83605; 83690; 84484; 84703; 85025; 87040; 88304; 93005; 93010; 96365; 96366; 96375; J0360; J1100; J1170; J1953; J2270; J2405; J2543; J2704; J2765; J3010; J3490; J7030; J7050; Q0162; Q9961; Q9967; S0020; S0028; U0002

== ENCOUNTER 2022-11-20 10:08 | Emergency (ER) | payer OTHER ==
[2022-11-20] MEDS ORDERED: Dexamethasone 4 MG TAB ONE (11:03)
== END 2022-11-20 11:22 | disposition home or self-care (01) ==
LOC: ERS 10:08
DX: B37.9 Candidiasis, unspecified (principal); K13.70 Unspecified lesions of oral mucosa; G40.909 Epilepsy, unspecified, not intractable, without status epilepticus
CPT/HCPCS: 99283; J8540

== ENCOUNTER 2022-11-20 18:53 | Emergency (ER) | payer OTHER ==
[2022-11-20] MEDS ORDERED: Acetaminophen 500 MG TAB ONE (19:59)
[2022-11-20] MEDS ORDERED: cloNIDine 0.1 MG TAB ONE (19:59)
== END 2022-11-20 20:31 | disposition home or self-care (01) ==
LOC: ERS 18:53
DX: B37.0 Candidal stomatitis (principal); I10 Essential (primary) hypertension; G40.909 Epilepsy, unspecified, not intractable, without status epilepticus
CPT/HCPCS: 99283; J8540

== ENCOUNTER 2022-11-30 10:55 | Emergency (ER) | payer OTHER ==
[2022-11-30 13:13] LABS: #Lymphocytes 1.8 thou/uL (1.20-3.40); #Monocytes 0.5 thou/uL (0.11-0.59); %Basophils 0.3 % (0.0-1.0); %Eosinophils 0.5 % (0.0-10.0); %Lymphocytes 28.1 % (21.0-51.0); %Monocytes 7.2 % (0.0-10.0); %Neutrophils 63.9 % (42.0-75.0); Hemoglobin 13.1 g/dL (12.0-16.0); Mean Corpuscular HGB CONC 35.4 g/dL (32.0-36.0); Mean Corpuscular Hemoglobin 32.7 pg (27.0-31.0); Mean Corpuscular Volume 92.6 fl (78.0-98.0); Mean Platelet Volume 5.8 fL (7.4-10.4); Platelet Count 341 10x3/uL (130-400); RBC Distribution Width 11.8 % (11.5-14.5); Red Blood Cell (RBC) Count 4.01 mill/uL (4.20-5.40); White Blood Cell (WBC) Count 6.3 10x3/uL (4.8-10.8)
[2022-11-30 13:28] LABS: ALT (SGPT) 12 U/L (8-55); AST (SGOT) 20 U/L (5-34); Albumin 4.2 g/dL (3.5-5.0); Alkaline Phosphatase 102 U/L (40-110); Anion Gap 16 mmol/L (10-20); BUN (Urea Nitrogen) 11 mg/dL (9.8-20.1); Bilirubin, Total 0.7 mg/dL (0.2-1.2); CK (CPK) 54 U/L (29-168); Calc. Creatinine Clearance 0 mL/min (70-130); Calcium 9.7 mg/dL (7.8-10.44); Carbon Dioxide 20 mmol/L (22-29); Chloride 93 mmol/L (98-107); Estimated GFR 61; Globulin 2.3 g/dL (2.4-3.5); Glucose 108 mg/dL (70-105); Lipase 35 U/L (8-78); Potassium 3.5 mmol/L (3.5-5.1); Protein, Total 6.5 g/dL (6.0-8.3); Sodium 125 mmol/L (136-145)
[2022-11-30 14:28] LABS: Bilirubin Negative (Negative); Blood, Urine Negative (Negative); Clarity Clear (Clear); Glucose, Urine (Dipstick) Normal (Negative); Ketone, Urine Negative (Negative); Leukocyte Negative Leu/uL (Negative); Nitrite Negative (Negative); Protein, Urine (Dipstick) Negative (Neg-Trace); Specific Gravity, Urine 1.004 (1.002-1.036); Urobilinogen Normal mg/dL (Less than 2); pH, Urine 6.5 (5.0-9.0)
[2022-11-30 14:33] LABS: Amphetamine Detected (NotDetected); Barbiturates Screen Not Detected (NotDetected); Benzodiazepine Screen Detected (NotDetected); Cocaine Metabolite Screen Not Detected (NotDetected); Methadone Not Detected (NotDetected); Methamphetamine Not Detected (NotDetected); Opiate Screen Not Detected (NotDetected); Oxycodone Screen Not Detected (NotDetected); Phencyclidine (PCP) Not Detected (NotDetected); THC/Cannabinoid Screen Detected (NotDetected); Tricyclic Screen Not Detected (NotDetected)
== END 2022-11-30 16:20 | disposition home or self-care (01) ==
LOC: ERS 10:55
DX: M54.50 Low back pain, unspecified (principal); E87.1 Hypo-osmolality and hyponatremia; I10 Essential (primary) hypertension; K21.9 Gastro-esophageal reflux disease without esophagitis; Z87.891 Personal history of nicotine dependence; Z79.899 Other long term (current) drug therapy
CPT/HCPCS: 36415; 36416; 51701; 70450; 80053; 80306; 81003; 82550; 83605; 83690; 84443; 84484; 85025; 93005; 94760

== ENCOUNTER 2022-12-03 04:31 | Emergency (ER) | payer OTHER ==
[2022-12-03] MEDS ORDERED: LORazepam 2 MG/ML SYR.(CARPUJECT) ONE (05:06)
[2022-12-03 05:23] LABS: #Lymphocytes 1.3 thou/uL (1.20-3.40); #Monocytes 0.3 thou/uL (0.11-0.59); #Neutrophils 2.5 thou/uL (1.40-6.50); %Basophils 0.9 % (0.0-1.0); %Lymphocytes 31.9 % (21.0-51.0); %Monocytes 7.7 % (0.0-10.0); %Neutrophils 58.6 % (42.0-75.0); Hemoglobin 11.2 g/dL (12.0-16.0); Mean Corpuscular HGB CONC 35.3 g/dL (32.0-36.0); Mean Corpuscular Hemoglobin 32.6 pg (27.0-31.0); Mean Corpuscular Volume 92.3 fl (78.0-98.0); Mean Platelet Volume 5.9 fL (7.4-10.4); Platelet Count 326 10x3/uL (130-400); RBC Distribution Width 11.8 % (11.5-14.5); Red Blood Cell (RBC) Count 3.45 mill/uL (4.20-5.40); White Blood Cell (WBC) Count 4.2 10x3/uL (4.8-10.8)
[2022-12-03 05:51] LABS: ALT (SGPT) 9 U/L (8-55); AST (SGOT) 17 U/L (5-34); Albumin 3.7 g/dL (3.5-5.0); Alkaline Phosphatase 85 U/L (40-110); Anion Gap 12 mmol/L (10-20); BUN (Urea Nitrogen) 8 mg/dL (9.8-20.1); Bilirubin, Total 0.5 mg/dL (0.2-1.2); Calc. Creatinine Clearance 0 mL/min (70-130); Calcium 8.9 mg/dL (7.8-10.44); Carbon Dioxide 20 mmol/L (22-29); Chloride 102 mmol/L (98-107); Estimated GFR 84; Globulin 2.2 g/dL (2.4-3.5); Glucose 108 mg/dL (70-105); Potassium 3.5 mmol/L (3.5-5.1); Protein, Total 5.9 g/dL (6.0-8.3); Sodium 130 mmol/L (136-145)
[2022-12-03 05:54] LABS: Acetaminophen Less than 10.0 mcg/mL (10.0-30.0); Alcohol Less than 10 mg/dL (Less than 10); Salicylate Less than 8.0 mg/dL (15.0-30.0)
[2022-12-03 05:57] LABS: Bilirubin Negative (Negative); Blood, Urine Negative (Negative); Clarity Clear (Clear); Glucose, Urine (Dipstick) Normal (Negative); Ketone, Urine Negative (Negative); Leukocyte 500 Leu/uL (Negative); Nitrite Negative (Negative); Protein, Urine (Dipstick) Negative (Neg-Trace); Specific Gravity, Urine 1.004 (1.002-1.036); Squamous Epithelial 0-3 HPF (0-3); Urobilinogen Normal mg/dL (Less than 2); WBC/HPF 21-50 HPF (0-3)
[2022-12-03 05:59] LABS: Bacteria/HPF Rare-Few HPF (None Seen); Pregnancy Test - Urine (BHCG) Negative (Negative); Pregu Control Background? CLEAR/WHITE (CLR/WHITE); Pregu Control Bar Appear? YES (CONTROL BAR); Specific Gravity 1.004 (1.002-1.036)
[2022-12-03 06:11] LABS: Amphetamine Detected (NotDetected); Barbiturates Screen Not Detected (NotDetected); Benzodiazepine Screen Detected (NotDetected); Cocaine Metabolite Screen Not Detected (NotDetected); Methadone Not Detected (NotDetected); Methamphetamine Not Detected (NotDetected); Opiate Screen Not Detected (NotDetected); Oxycodone Screen Not Detected (NotDetected); Phencyclidine (PCP) Not Detected (NotDetected); THC/Cannabinoid Screen Detected (NotDetected); Tricyclic Screen Not Detected (NotDetected)
[2022-12-03] MEDS ORDERED: cefTRIAXone (ROCEPHIN) 1 GM VIAL ONE (07:10)
== END 2022-12-03 09:40 | disposition home or self-care (01) ==
LOC: ERS 04:31
DX: N39.0 Urinary tract infection, site not specified (principal); D72.819 Decreased white blood cell count, unspecified; I10 Essential (primary) hypertension; K21.9 Gastro-esophageal reflux disease without esophagitis; Z87.891 Personal history of nicotine dependence; Z79.899 Other long term (current) drug therapy
CPT/HCPCS: 70450; 80306; 80307; 81025; 93005; J2060; 36415; 80053; 81003; 81015; 84443; 85025; 96365; 96375; J0696

== ENCOUNTER 2022-12-06 17:05 | Observation (INO) | payer OTHER ==
[2022-12-06 17:55] LABS: #Basophils 0.1 thou/uL (0.0-0.2); #Lymphocytes 1.8 thou/uL (1.20-3.40); #Monocytes 0.4 thou/uL (0.11-0.59); #Neutrophils 3.1 thou/uL (1.40-6.50); %Basophils 1.1 % (0.0-1.0); %Eosinophils 0.4 % (0.0-10.0); %Lymphocytes 33.6 % (21.0-51.0); %Monocytes 7.6 % (0.0-10.0); %Neutrophils 57.4 % (42.0-75.0); Hemoglobin 11.8 g/dL (12.0-16.0); Mean Corpuscular HGB CONC 33.2 g/dL (32.0-36.0); Mean Corpuscular Hemoglobin 31.3 pg (27.0-31.0); Mean Corpuscular Volume 94.2 fl (78.0-98.0); Mean Platelet Volume 5.7 fL (7.4-10.4); Platelet Count 369 10x3/uL (130-400); RBC Distribution Width 12.1 % (11.5-14.5); Red Blood Cell (RBC) Count 3.77 mill/uL (4.20-5.40); White Blood Cell (WBC) Count 5.3 10x3/uL (4.8-10.8)
[2022-12-06 18:27] LABS: ALT (SGPT) 14 U/L (8-55); AST (SGOT) 26 U/L (5-34); Acetaminophen Less than 10.0 mcg/mL (10.0-30.0); Albumin 3.5 g/dL (3.5-5.0); Alcohol Less than 10 mg/dL (Less than 10); Alkaline Phosphatase 74 U/L (40-110); Anion Gap 13 mmol/L (10-20); BUN (Urea Nitrogen) 6 mg/dL (9.8-20.1); Bilirubin, Total 0.6 mg/dL (0.2-1.2); CK (CPK) 57 U/L (29-168); Calc. Creatinine Clearance 0 mL/min (70-130); Calcium 8.7 mg/dL (7.8-10.44); Carbon Dioxide 18 mmol/L (22-29); Chloride 100 mmol/L (98-107); Estimated GFR 86; Globulin 2.4 g/dL (2.4-3.5); Glucose 113 mg/dL (70-105); Potassium 3.2 mmol/L (3.5-5.1); Protein, Total 5.9 g/dL (6.0-8.3); Salicylate Less than 8.0 mg/dL (15.0-30.0); Sodium 128 mmol/L (136-145)
[2022-12-06] MEDS ORDERED: Folic Acid 5 MG/ML MDV IVP SCH (20:15)
[2022-12-06] MEDS ORDERED: Multivit, Therapeutic 1 TAB PO SCH (20:15)
[2022-12-06] MEDS ORDERED: Thiamine HCl 200 MG/2 ML VIAL SLOW IVP SCH (20:30)
[2022-12-06 23:05] VITALS: BMI 19.8
[2022-12-06] MEDS ORDERED: Ondansetron PF 4 MG/2 ML Vial IVP PRN (23:20)
[2022-12-07 04:34] LABS: #Basophils 0.1 thou/uL (0.0-0.2); #Lymphocytes 1.7 thou/uL (1.20-3.40); #Monocytes 0.7 thou/uL (0.11-0.59); #Neutrophils 3.4 thou/uL (1.40-6.50); %Basophils 1.3 % (0.0-1.0); %Eosinophils 0.8 % (0.0-10.0); %Lymphocytes 28.6 % (21.0-51.0); %Monocytes 11.3 % (0.0-10.0); %Neutrophils 58.1 % (42.0-75.0); Hemoglobin 12.4 g/dL (12.0-16.0); Mean Corpuscular HGB CONC 34.9 g/dL (32.0-36.0); Mean Corpuscular Hemoglobin 32.9 pg (27.0-31.0); Mean Corpuscular Volume 94.5 fl (78.0-98.0); Mean Platelet Volume 5.7 fL (7.4-10.4); Platelet Count 359 10x3/uL (130-400); Red Blood Cell (RBC) Count 3.76 mill/uL (4.20-5.40); White Blood Cell (WBC) Count 5.9 10x3/uL (4.8-10.8)
[2022-12-07 04:50] LABS: Anion Gap 12 mmol/L (10-20); BUN (Urea Nitrogen) 5 mg/dL (9.8-20.1); Calc. Creatinine Clearance 59 mL/min (70-130); Calcium 8.9 mg/dL (7.8-10.44); Carbon Dioxide 23 mmol/L (22-29); Chloride 103 mmol/L (98-107); Estimated GFR 86; Glucose 108 mg/dL (70-105); Potassium 2.9 mmol/L (3.5-5.1); Sodium 135 mmol/L (136-145)
[2022-12-07] MEDS: HYDROcodone/Acetaminophen 5/325 mg Tablet PO PRN ×2 (06:07→10:00)
[2022-12-07] MEDS ORDERED: hydrOXYzine 25 MG TAB PO PRN (08:56)
[2022-12-07] MEDS ORDERED: ALPRAZolam 1 MG TAB PO PRN (08:56)
[2022-12-07] MEDS ORDERED: Famotidine/PF 20 mg/2ml Vial SLOW IVP SCH (09:00)
[2022-12-07] MEDS ORDERED: Lisinopril 20 MG TAB PO SCH (09:00)
[2022-12-07] MEDS ORDERED: Gabapentin 400 MG CAP PO SCH ×2 (10:00→15:00)
[2022-12-07] MEDS: levETIRAcetam 500 MG TAB PO SCH ×2 (10:01→13:57)
[2022-12-07] MEDS: Potassium Chloride 20 MEQ TAB PO SCH ×2 (12:09→13:57)
[2022-12-07 12:53] VITALS: BP 114/76; TEMP 97.4
== END 2022-12-07 16:37 | disposition home or self-care (01) ==
LOC: ERS 17:05 → 2NO 20:31
PROVIDERS: ADMIT Internal Medicine; ATTEND Internal Medicine
DX: R41.82 Altered mental status, unspecified (principal); E87.1 Hypo-osmolality and hyponatremia; R44.0 Auditory hallucinations; I10 Essential (primary) hypertension; N39.0 Urinary tract infection, site not specified; G40.909 Epilepsy, unspecified, not intractable, without status epilepticus; K21.9 Gastro-esophageal reflux disease without esophagitis; Z85.820 Personal history of malignant melanoma of skin; Z86.73 Personal history of transient ischemic attack (TIA), and cerebral infarction without residual deficits; Z87.891 Personal history of nicotine dependence; Z79.1 Long term (current) use of non-steroidal anti-inflammatories (NSAID); Z79.2 Long term (current) use of antibiotics; Z79.891 Long term (current) use of opiate analgesic; Z79.899 Other long term (current) drug therapy; Z88.6 Allergy status to analgesic agent; Z88.8 Allergy status to other drugs, medicaments and biological substances
CPT/HCPCS: 36415; 36416; 70450; 71045; 80048; 80053; 80307; 82550; 83605; 84484; 85025; 93005; 96372; 96374; 96375; G0378; J1650; J3411; S0028

== ENCOUNTER 2024-07-10 21:05 | Inpatient (IN) | payer OTHER ==
[2024-07-10 22:25] LABS: Actual Bicarbonate (HCO3v) 25.5 mEq/L (22-28); Analyzer IN Cardio ER; Calcium, Ionized (venous) 1.01 mmol/L (1.16-1.32); Chloride (VBG) 85 mmol/L (98-106); Hematocrit-VBG 38 % (36.0-47.0); Hemoglobin (Hb) 12.9 g/dL (11.7-16.0); Potassium (VBG) 3.37 mmol/L (3.70-5.30); Sodium 123 mmol/L (133-146); pH (venous) 7.469 (7.32-7.43)
[2024-07-10 22:45] LABS: #Basophils 0.03 10x3/uL (0.0-0.2); #Eosinophils Less than 0.03 10x3/uL (0.0-0.7); %Basophils 0.5 % (0.0-1.0); %Lymphocytes 32.3 % (21.0-51.0); Hemoglobin 11.8 g/dL (12.0-16.0); Mean Corpuscular HGB CONC 35.8 g/dL (32.0-36.0); Mean Platelet Volume 8.5 fL (7.4-10.4); Platelet Count 321 10x3/uL (130-400); RBC Distribution Width 13.1 % (11.5-14.5); Red Blood Cell (RBC) Count 3.93 mill/uL (4.20-5.40)
[2024-07-10 22:46] LABS: PTT 31.6 sec (22.9-36.1)
[2024-07-10 22:48] LABS: ALT (SGPT) 16 U/L (8-55); AST (SGOT) 22 U/L (5-34); Acetaminophen Less than 10 mcg/mL (Less than 10); Alcohol Less than 10.0 mg/dL (Less than 10); Alkaline Phosphatase 182 U/L (40-110); Anion Gap 16 mmol/L (10-20); BUN (Urea Nitrogen) 9 mg/dL (9.8-20.1); CK (CPK) 80 U/L (29-168); Calc. Creatinine Clearance 0 mL/min (70-130); Calcium 8.7 mg/dL (7.8-10.44); Carbon Dioxide 23 mmol/L (22-29); Chloride 88 mmol/L (98-107); Estimated GFR 99; Globulin 3.1 g/dL (2.4-3.5); Glucose 109 mg/dL (70-105); Magnesium 1.6 mg/dL (1.6-2.6); Potassium 3.5 mmol/L (3.5-5.1); Protein, Total 7.1 g/dL (6.0-8.3); Salicylate Less than 8.0 mg/dL (Less than 8.0); Sodium 123 mmol/L (136-145)
[2024-07-10 22:52] LABS: Troponin I Less than 0.010 ng/mL (< 0.028)
[2024-07-10 23:28] LABS: Bacteria/HPF None Seen HPF (None Seen); Bilirubin Negative (Negative); Blood, Urine Negative (Negative); CAUTI Indications for Culture Alt mental st,lethar; Clarity Clear (Clear); Glucose, Urine (Dipstick) Normal (Negative); Ketone, Urine Negative (Negative); Leukocyte Negative Leu/uL (Negative); Nitrite Negative (Negative); Protein, Urine (Dipstick) Negative (Neg-Trace); RBC/HPF 0-3 HPF (0-3); Squamous Epithelial None Seen HPF (0-3); Urobilinogen Normal mg/dL (Less than 2); WBC/HPF 0-3 HPF (0-3); pH, Urine 6.5 (5.0-9.0)
[2024-07-10 23:29] LABS: Specific Gravity, Urine 1.005 (1.002-1.036); Urine Culture Reflex No No
[2024-07-10 23:31] LABS: Amphetamine Not Detected (NotDetected); Barbiturates Screen Not Detected (NotDetected); Benzodiazepine Screen Detected (NotDetected); Cocaine Metabolite Screen Not Detected (NotDetected); Methadone Not Detected (NotDetected); Methamphetamine Not Detected (NotDetected); Opiate Screen Detected (NotDetected); Oxycodone Screen Not Detected (NotDetected); Phencyclidine (PCP) Not Detected (NotDetected); THC/Cannabinoid Screen Detected (NotDetected); Tricyclic Screen Not Detected (NotDetected)
[2024-07-11] MEDS ORDERED: Ondansetron ODT 4 MG TAB SL PRN (00:30)
[2024-07-11] MEDS ORDERED: Sodium Chloride 0.9% 1,000 ML IV SCH (00:30)
[2024-07-11] MEDS ORDERED: Ondansetron PF 4 MG/2 ML Vial IVP PRN ×2 (00:30→01:39)
[2024-07-11] MEDS ORDERED: Acetaminophen 650 MG Suppository PR PRN (01:39)
[2024-07-11] MEDS: Magnesium 2 GM/50 ML(in water) 2 GM in Premix 1 BAG IVPB SCH (02:03)
[2024-07-11] MEDS: Sodium Chloride 0.9% 500 ML IV SCH (02:06)
[2024-07-11 02:55] LABS: Troponin I Less than 0.010 ng/mL (< 0.028)
[2024-07-11] MEDS: Potassium Chloride 20 MEQ in Premix 1 BAG IVPB SCH ×2 (02:59→11:23)
[2024-07-11 05:03] LABS: Troponin I Less than 0.010 ng/mL (< 0.028)
[2024-07-11 06:42] VITALS: BMI 26.5
[2024-07-11 08:24] LABS: Anion Gap 14 mmol/L (10-20); BUN (Urea Nitrogen) 8 mg/dL (9.8-20.1); Calc. Creatinine Clearance 99 mL/min (70-130); Calcium 8.5 mg/dL (7.8-10.44); Carbon Dioxide 21 mmol/L (22-29); Chloride 92 mmol/L (98-107); Estimated GFR 103; Glucose 109 mg/dL (70-105); Magnesium 2.3 mg/dL (1.6-2.6); Potassium 3.4 mmol/L (3.5-5.1); Sodium 124 mmol/L (136-145)
[2024-07-11 09:51] VITALS: BMI 26.5
[2024-07-11] MEDS: Sodium Chloride 0.9% 1,000 ML IV SCH (11:24)
[2024-07-11] MEDS: levETIRAcetam 500 MG TAB PO SCH (11:35)
[2024-07-11] MEDS: DULoxetine 30 MG CAP PO SCH (11:35)
[2024-07-11 15:27] LABS: Anion Gap 14 mmol/L (10-20); BUN (Urea Nitrogen) 7 mg/dL (9.8-20.1); Calc. Creatinine Clearance 93 mL/min (70-130); Calcium 8.5 mg/dL (7.8-10.44); Carbon Dioxide 20 mmol/L (22-29); Chloride 94 mmol/L (98-107); Estimated GFR 102; Glucose 111 mg/dL (70-105); Potassium 3.6 mmol/L (3.5-5.1); Sodium 124 mmol/L (136-145)
[2024-07-11] MEDS: Morphine IR 10 MG/5 ML UDCUP PO SCH ×2 (17:35→21:35)
[2024-07-11] MEDS: Acetaminophen 325 MG TAB PO PRN (17:36)
[2024-07-11] MEDS: Hyaluronidase, Human Recomb. 150 UNITS/ML VIAL SC SCH (19:07)
[2024-07-11] MEDS: Lorazepam 2 MG/ML VIAL SLOW IVP PRN (21:34)
[2024-07-11] MEDS: ALPRAZolam 0.5 MG TAB PO SCH (21:34)
[2024-07-12 05:47] LABS: #Basophils 0.03 10x3/uL (0.0-0.2); #Eosinophils Less than 0.03 10x3/uL (0.0-0.7); %Basophils 0.5 % (0.0-1.0); %Eosinophils 0.2 % (0.0-10.0); %Lymphocytes 35.5 % (21.0-51.0); %Monocytes 10.4 % (0.0-10.0); %Neutrophils 53.1 % (42.0-75.0); Hematocrit 33.6 % (36.0-47.0); Hemoglobin 11.9 g/dL (12.0-16.0); Mean Corpuscular HGB CONC 35.4 g/dL (32.0-36.0); Mean Corpuscular Hemoglobin 29.8 pg (27.0-31.0); Mean Platelet Volume 8.3 fL (7.4-10.4); Platelet Count 316 10x3/uL (130-400); RBC Distribution Width 13.2 % (11.5-14.5)
[2024-07-12 06:06] LABS: Anion Gap 15 mmol/L (10-20); BUN (Urea Nitrogen) 8 mg/dL (9.8-20.1); Calc. Creatinine Clearance 92 mL/min (70-130); Calcium 8.5 mg/dL (7.8-10.44); Carbon Dioxide 21 mmol/L (22-29); Chloride 95 mmol/L (98-107); Estimated GFR 102; Glucose 95 mg/dL (70-105); Magnesium 2.1 mg/dL (1.6-2.6); Potassium 3.4 mmol/L (3.5-5.1); Sodium 128 mmol/L (136-145)
[2024-07-12] MEDS: Potassium Bicarbonate/Cit Ac 20 MEQ TAB PO SCH (09:17)
[2024-07-12] MEDS: Sodium Chloride 0.9% 1,000 ML IV SCH (22:36)
[2024-07-13] MEDS: Melatonin 3 MG TAB PO SCH (01:28)
[2024-07-13 05:19] LABS: Anion Gap 13 mmol/L (10-20); BUN (Urea Nitrogen) 9 mg/dL (9.8-20.1); Calc. Creatinine Clearance 89 mL/min (70-130); Calcium 8.2 mg/dL (7.8-10.44); Carbon Dioxide 20 mmol/L (22-29); Chloride 97 mmol/L (98-107); Estimated GFR 101; Glucose 95 mg/dL (70-105); Potassium 3.5 mmol/L (3.5-5.1); Sodium 126 mmol/L (136-145)
[2024-07-13] MEDS: Sodium Chloride 1 GM TAB PO SCH (09:20)
[2024-07-13] MEDS: Sodium Chloride 0.9% 1,000 ML IV SCH (15:23)
[2024-07-13] MEDS: Ondansetron ODT 4 MG TAB PO PRN (20:44)
[2024-07-13] MEDS: Lisinopril 20 MG TAB PO SCH (22:20)
[2024-07-14 03:27] LABS: #Basophils 0.04 10x3/uL (0.0-0.2); #Eosinophils Less than 0.03 10x3/uL (0.0-0.7); %Basophils 0.6 % (0.0-1.0); %Eosinophils 0.1 % (0.0-10.0); %Monocytes 7.8 % (0.0-10.0); %Neutrophils 62.2 % (42.0-75.0); Hematocrit 30.9 % (36.0-47.0); Hemoglobin 10.9 g/dL (12.0-16.0); Mean Corpuscular HGB CONC 35.3 g/dL (32.0-36.0); Mean Corpuscular Hemoglobin 29.4 pg (27.0-31.0); Mean Corpuscular Volume 83.3 fL (78.0-98.0); Mean Platelet Volume 8.5 fL (7.4-10.4); Platelet Count 302 10x3/uL (130-400); RBC Distribution Width 13.1 % (11.5-14.5); Red Blood Cell (RBC) Count 3.71 mill/uL (4.20-5.40)
[2024-07-14 04:04] LABS: Anion Gap 13 mmol/L (10-20); BUN (Urea Nitrogen) 5 mg/dL (9.8-20.1); Calc. Creatinine Clearance 96 mL/min (70-130); Calcium 8.2 mg/dL (7.8-10.44); Carbon Dioxide 19 mmol/L (22-29); Chloride 101 mmol/L (98-107); Estimated GFR 103; Glucose 94 mg/dL (70-105); Magnesium 1.8 mg/dL (1.6-2.6); Potassium 3.1 mmol/L (3.5-5.1); Sodium 130 mmol/L (136-145)
[2024-07-14] MEDS: Potassium Chloride 20 MEQ TAB PO SCH (09:11)
[2024-07-14] MEDS: Magnesium 2 GM/50 ML(in water) 2 GM in Premix 1 BAG IVPB SCH (09:11)
[2024-07-14] MEDS: FLU (Fluarix Triv) TS24-25(6MOS UP)/PF 45 MCG/0.5 ML Syringe IM ONE (09:12)
[2024-07-14 17:18] LABS: Anion Gap 15 mmol/L (10-20); BUN (Urea Nitrogen) 5 mg/dL (9.8-20.1); Calc. Creatinine Clearance 92 mL/min (70-130); Calcium 8.5 mg/dL (7.8-10.44); Carbon Dioxide 17 mmol/L (22-29); Chloride 104 mmol/L (98-107); Estimated GFR 102; Glucose 97 mg/dL (70-105); Potassium 3.8 mmol/L (3.5-5.1); Sodium 132 mmol/L (136-145)
[2024-07-14] MEDS: hydrALAZINE 20 MG/ML VIAL SLOW IVP SCH (20:33)
[2024-07-15] MEDS: cloNIDine 0.1 MG TAB PO PRN (01:09)
[2024-07-15 05:07] LABS: Anion Gap 14 mmol/L (10-20); BUN (Urea Nitrogen) 6 mg/dL (9.8-20.1); Calc. Creatinine Clearance 92 mL/min (70-130); Calcium 8.5 mg/dL (7.8-10.44); Carbon Dioxide 18 mmol/L (22-29); Chloride 105 mmol/L (98-107); Estimated GFR 102; Glucose 106 mg/dL (70-105); Magnesium 2.2 mg/dL (1.6-2.6); Potassium 3.7 mmol/L (3.5-5.1); Sodium 133 mmol/L (136-145)
[2024-07-15 12:13] VITALS: BP 137/93; TEMP 98.4
== END 2024-07-15 16:00 | disposition left against medical advice (07) | DRG 640 ==
LOC: ERS 21:05 → 2SE 07-11 00:16 → OBSVTOIN 07-12 13:12
PROVIDERS: ADMIT Student in an Organized Health Care Education/Training Program; ATTEND Internal Medicine
PROC: 4A00X4Z Measurement of Central Nervous Electrical Activity, External Approach (ICD-10-PCS; principal; 2024-07-11)
DX: E87.1 Hypo-osmolality and hyponatremia (principal); G93.41 Metabolic encephalopathy; F10.239 Alcohol dependence with withdrawal, unspecified; G89.4 Chronic pain syndrome; I10 Essential (primary) hypertension; F32.A Depression, unspecified; F41.9 Anxiety disorder, unspecified; F19.10 Other psychoactive substance abuse, uncomplicated; C43.9 Malignant melanoma of skin, unspecified; Z90.89 Acquired absence of other organs; Z87.11 Personal history of peptic ulcer disease; Z79.82 Long term (current) use of aspirin; Z87.891 Personal history of nicotine dependence; Z79.899 Other long term (current) drug therapy
CPT/HCPCS: 36415; 36416; 51701; 70450; 70553; 71045; 76376; 80048; 80053; 80177; 80306; 80307; 81001; 82550; 82805; 83605; 83735; 84300; 84439; 84443; 84484; 85025; 85610; 85730; 93005; 94760; 96374; 96375; 96376; G0378; J0360; J2060; J3473; J3475; J3480; J7030; Q0162